=== PATIENT | male | born 1985 | race Caucasian/White ===

== ENCOUNTER 2021-12-12 18:33 | Emergency (ER) | payer OTHER, SELFPAY ==
--- NOTE | ~2021-12-12 | CT_ITS ---
EXAMINATION: CT abdomen pelvis w con DATE: 12/12/2021 22:18 INDICATION: Abdominal pain, nausea, vomiting, diarrhea, fever TECHNIQUE: Computed tomography (CT) of the abdomen and pelvis was performed with 100 CC Omnipaque 350 intravenous contrast. Automated exposure control and iterative reconstruction technique were employe d. Exam dose: 1178.89 mGy-cm total exam DLP. COMPARISON: None. FINDINGS: The lung bases are clear. Heart size is within normal range. No pericardial or pleural effu kady. Diffuse hepatic steatosis. No hepatic, splenic, pancreatic, adrenal or renal space-occupying mass les ion is evident. The gallbladder is present. No bile duct or pancreatic duct dilatation. Bilateral per sistent lobation. No urinary tract calculus or hydroureteronephrosis. Urinary bladder and prost ate gland are unremarkable. Normal caliber of the abdominal aorta. No intraperitoneal or retroperitoneal or pelvic mass lesion or adenopathy or ascites. Normal appendix. No bowel obstruction, bowel wall thickening, pneumatosis or intraperitoneal free air . Small fat-containing umbilical hernia. Included skeletal structures are unremarkable. IMPRESSION: Hepatic steatosis Normal appendix Reviewed, dictated and finalized at [facility]. Reviewed, dictated and finalized at [facility].
--- NOTE | ~2021-12-12 | XR_ITS ---
XR chest 1V portable DATE: 12/12/2021 20:55 INDICATION: Cough TECHNIQUE: Portable AP chest on 12/12/2021 at 2061 hours COMPARISON: 12/08/2005 2 view chest FINDINGS: No pulmonary infiltrate or consolidation, pulmonary vascular congestion or pleural effusion or pneumothorax. Heart size is within normal range. IMPRESSION: No active cardiopulmonary disease Reviewed, dictated and finalized at [facility].
[2021-12-12 19:07] VITALS: BP 140/91; PULSE 107; RESP 12; TEMP 39.2; O2SAT 98
[2021-12-12 20:39] VITALS: BP 161/93; PULSE 94; RESP 16; TEMP 37.8; O2SAT 97
--- NOTE | 2021-12-12 21:13 | ED.GENADULT ---
HPI - General Adult General Chief complaint: Abdominal Pain Stated complaint: N/V/D Time Seen by Provider: 12/12/21 20:34 History of Present Illness HPI narrative: Patient is a 36-year-old gentleman who presents the emergency department with chief complaint of nausea vomiting diarrhea. Patient reports that he started having vomiting and diarrhea over the weekend started to feel little better has had no diarrhea or vomiting today reports has had some discomfort throughout his abdomen also reports that he had a fullness feeling in his chest. Patient reports that he is spiked a temperature up to 105 at home. Patient states that he has not been vaccinated or had COVID previously. Patient does report that he is some discomfort in his lower quadrants of his abdomen. Related Data Allergies Allergy/AdvReac Type Severity Reaction Status Date / Time No Known Allergies Allergy Verified 12/12/21 20:45 Review of Systems Review of Systems: A 10 system review of systems was completed on the patient and is negative except for what is stated in the HPI. Nursing and ancillary documentation was reviewed. [facility] Family History Family History Father Diabetes mellitus Family history of coronary artery disease Social History Social History Smoking status: Former smoker Smoking end date: 09/17/13 Alcohol intake: current Exam Narrative: GENERAL: Well-appearing, well-nourished, and in no acute distress. HEAD: Normocephalic, atraumatic. EYES: PERRLA and EOMI. ENT: Nares clear, no rhinorrhea or epistaxis. Mucous membranes moist. NECK: Supple. CHEST: Clear to auscultation. No respiratory distress. HEART: Regular rate and rhythm. No murmur heard. Normal peripheral pulses. ABDOMEN: Soft, mild tenderness to palpation in lower quadrants of the abdomen, nondistended, normal active bowel sounds. EXTREMITIES: Normal range of motion. No edema. SKIN: Warm, dry, no rash. NEURO: No focal deficits. Alert and oriented x3. PSYCH: Normal mood and affect. Course Vital Signs Vital signs: Vital Signs Temperature 39.2 C H 12/12/21 19:07 Pulse Rate 107 H 12/12/21 19:07 Respiratory Rate 12 12/12/21 19:07 Blood Pressure 140/91 H 12/12/21 19:07 Pulse Oximetry 98 12/12/21 19:07 Temperature 37.4 C 12/12/21 22:35 Pulse Rate 81 12/12/21 22:35 Respiratory Rate 18 12/12/21 22:35 Blood Pressure 139/72 12/12/21 22:35 Pulse Oximetry 98 12/12/21 22:35 Medical Decision Making Vital Signs Vital Signs: Vital Signs Temperature 39.2 C H 12/12/21 19:07 Pulse Rate 107 H 12/12/21 19:07 Respiratory Rate 12 12/12/21 19:07 Blood Pressure 140/91 H 12/12/21 19:07 Pulse Oximetry 98 12/12/21 19:07 Temperature 37.4 C 12/12/21 22:35 Pulse Rate 81 12/12/21 22:35 Respiratory Rate 18 12/12/21 22:35 Blood Pressure 139/72 12/12/21 22:35 Pulse Oximetry 98 12/12/21 22:35 Lab Data Result diagrams: 12/12/21 21:25 12/12/21 21:25 Labs: Lab Results 12/12/21 12/12/21 12/12/21 Range/Units 21:25 21:25 21:25 WBC 7.4 (4.5-10.0) K/mm3 RBC 5.50 (4.6-6.20) M/mm3 Hgb 16.2 (14.0-18.0) g/dL Hct 47.3 (42.0-52.0) % MCV 86.0 (80-100) fl MCH 29.5 (26-34) pg MCHC 34.2 (32-36) g/dl RDW 13.4 (11.5-14.5) % Plt Count 168 (150-375) k/mm3 MPV 10.1 (7.4-10.4) fl Immature Gran % (Auto) 0.3 (0-0.5) % Neut % (Auto) 72.0 (45.5-73.1) % Lymph % (Auto) 13.3 L (18.3-44.2) % [place] % (Auto) 11.4 H (2.6-8.5) % Eos % (Auto) 2.3 (0-4.4) % Baso % (Auto) 0.7 (0.2-1.2) % Lymph # (Auto) 0.98 (0.9-3.2) K/mm3 [place] # (Auto) 0.8 H (0.1-0.6) K/mm3 Eos # (Auto) 0.2 (0-0.3) K/mm3 Baso # (Auto) 0.1 (0.0-0.1) K/mm3 Abs Immat Gran (auto) 0.02 (0.00-0.031) K/mm3 Absolute Neuts (auto) 5.
[2021-12-12 21:33] LABS: Basophils Absolute Auto 0.1 K/mm3 (0.0-0.1); Basophils Percent Auto 0.7 % (0.2-1.2); Eosinophils Absolute Auto 0.2 K/mm3 (0-0.3); Eosinophils Percent Auto 2.3 % (0-4.4); Hematocrit 47.3 % (42.0-52.0); Hemoglobin 16.2 g/dL (14.0-18.0); Immature Granulocyte Absolute 0.02 K/mm3 (0.00-0.031); Immature Granulocyte Percent A 0.3 % (0-0.5); Lymphocytes Absolute Auto 0.98 K/mm3 (0.9-3.2); Lymphocytes Percent Auto 13.3 % (18.3-44.2); Mean Corpuscular HGB Conc 34.2 g/dl (32-36); Mean Corpuscular Hemoglobin 29.5 pg (26-34); Mean Platelet Volume 10.1 fl (7.4-10.4); Monocytes Absolute Auto 0.8 K/mm3 (0.1-0.6); Monocytes Percent Auto 11.4 % (2.6-8.5); Neutrophils Absolute Auto 5.3 K/mm3 (1.3-6.7); Platelet Count Result 168 k/mm3 (150-375); Red Cell Distribution Width 13.4 % (11.5-14.5); White Blood Count 7.4 K/mm3 (4.5-10.0)
[2021-12-12] MEDS: SODIUM CHLORIDE 0.9% IV 1,000 ML 999 ML IV CONT (21:33)
[2021-12-12 21:36] LABS: Add Urine Microscopic? NO; Appearance Urine Clear (Clear); Bilirubin Urine Negative (Negative); Blood Urine Negative (Negative); Color Urine Yellow (Yellow); Glucose Urine UA Negative (Negative); Ketones Urine Negative (Negative); Leukocyte Esterase Ur Negative LEU/UL (Negative); Nitrate Urine Negative (Negative); Protein Urine Negative (Negative); Urobilinogen Urine Negative mg/dL (<2.0)
[2021-12-12 21:37] LABS: Specific Grav Ur 1.036 (1.001-1.035)
[2021-12-12 21:43] LABS: Lactic Acid Reflex 0.6 mmol/L (0.7-2.1)
[2021-12-12 21:44] LABS: Alanine Aminotransferase 70 U/L (4-50); Albumin Level 4.1 g/dL (3.5-5.1); Alkaline Phosphatase 64 U/L (38-126); Anion Gap 9 mmol/L (8-16); Aspartate Amino Transferase 42 U/L (17-59); Bilirubin,Total 0.5 mg/dL (0.2-1.3); Blood Urea Nitrogen 12 mg/dL (9-20); Calcium 8.2 mg/dL (8.4-10.2); Carbon Dioxide 23 mmol/L (22-30); Chloride 104 mmol/L (98-107); Estimated CRCL calculation 139 ml/min; Estimated Glomerular Filt Rate > 60; Glucose 98 mg/dL (65-110); Lipase 51 U/L (23-300); Potassium 3.8 mmol/L (3.4-5.0); Sodium 136 mmol/L (137-145)
[2021-12-12 22:19] LABS: SARS-CoV-2 RNA PCR Negative
[2021-12-12 22:35] VITALS: BP 139/72; PULSE 81; RESP 18; TEMP 37.4; O2SAT 98
[2021-12-13 00:06] VITALS: BP 118/80; PULSE 80; RESP 20; O2SAT 97
== END 2021-12-13 00:16 | disposition home or self-care (01) ==
PROVIDERS: Emergency Provider Emergency Medicine
DX: A08.4 Viral intestinal infection, unspecified (principal); Z20.822 Contact with and (suspected) exposure to COVID-19; Z87.891 Personal history of nicotine dependence
CPT/HCPCS: 36415; 71045; 74177; 80053; 81003; 83605; 83690; 85025; 96361; 96374; 99284; C9803; J0131; J7030; Q9967; U0003; U0005

== ENCOUNTER 2023-03-06 17:08 | Emergency (ER) | payer OTHER, SELFPAY ==
--- NOTE | ~2023-03-06 | XR_ITS ---
EXAM: XR knee LT min 4V DATE: 03/06/2023 17:45 HISTORY: fell on lt knee, pain anterior lt knee x 1 week . COMPARISON: None available. FINDINGS: Normal mineralization. No fracture or dislocation. No lytic or blastic lesion. Joint space s are maintained. No erosion or periosteal change. Soft tissues within normal limits. Small volume patricia int fluid. IMPRESSION: No acute osseous finding in the left knee. Reviewed, dictated and finalized at [facility].
--- NOTE | 2023-03-06 17:11 | ED.LOWEXIN ---
HPI - Extremity Injury (Lower) General Chief Complaint: Extremity Injury, Lower Stated Complaint: L KNEE INJURY Time Seen by Provider: 03/06/23 17:26 Source: patient, RN notes reviewed and old records reviewed Mode of arrival: ambulatory Limitations: no limitations History of Present Illness HPI Narrative: 37-year-old male presents to the [facility] with complaints of left knee pain. patient states last Sunday he fell onto his knees, continues to have pain to the knee. No bruising or swelling noted. Tenderness to the patella Related Data Home Medications Medication Instructions Recorded Confirmed No Home Medications 03/06/23 03/06/23 Allergies Allergy/AdvReac Type Severity Reaction Status Date / Time No Known Allergies Allergy Verified 03/06/23 17:20 Review of Systems Review of Systems: All systems reviewed & are unremarkable except as noted in HPI and below Constitutional: Constitutional: Reports no additional constitutional complaints Eyes: Eyes: Reports no additional eye complaints ENT: Reports system reviewed and no additional complaints, except as documented Cardiovascular: Cardiovascular: Reports no additional cardiovascular complaints, Denies chest pain and Denies dyspnea Respiratory: Respiratory: Reports no additional respiratory complaints, Denies chest congestion, Denies cough and Denies dyspnea Gastrointestinal: Gastrointestinal: Reports no additional gastrointestinal complaints, Denies abdominal pain, Denies nausea and Denies vomiting Musculoskeletal: Musculoskeletal: Reports as per HPI, Reports arthralgias and Denies joint swelling Integumentary/Breasts: Skin/Breast: Reports system reviewed and no additional complaints, except as docu Neurologic: Reports system reviewed and no additional complaints, except as documented Psychiatric: Psychiatric: Reports no additional psychiatric complaints Allergic/Immunologic: Allergic/Immunologic: Reports no additional allergic/immunologic complaints [facility] Family History Family History Father Diabetes mellitus Family history of coronary artery disease Social History Social History Smoking status: Former smoker Smoking end date: 09/17/13 Alcohol intake: current Comments At the time of my signature, I reviewed and agree with the nursing past medical, surgical, social, and family history. There is no relevant family history pertinent to the patient complaint. Exam Const: General: cooperative, healthy appearing, comfortable, no acute distress, well developed, alert and well nourished Nutritional Appearance: well nourished Orientation/consciousness: patient oriented x3 Limitations: no limitations HENMT: Head: normal to inspection Ears: hearing grossly normal bilaterally and external ears normal Face/Nose/Sinus: Normal external nose present, Normal nares present, Normal nasal mucous membranes and turbinates present and normal facial exam Face and sinus: normal facial exam Eyes: General: appearance normal, both eyes and all related structures Alignment and Position: alignment normal Periorbital: periorbital findings normal Pupils: Equal, round and reactive pupils present EOM: EOMs intact bilaterally Neck: Neck: normal visual inspection, full ROM, no lymphadenopathy and no meningeal signs Chest: Chest palpation & inspection: normal inspection of the chest Resp: Effort & Inspection: normal respiratory effort and able to speak in complete sentences Cardio: Rate: regular rate Rhythm: regular rhythm Back/Spine/Pelvis: Cervical Spine: cervical ROM normal Thoracic/Lumbar Spine: No thoracic spinal tenderness Skin: General skin exam: normal color and no rashes or lesions noted Lesions: no lesions Rashes: no rashes Wounds: no wounds Neuro: General: patient oriented x3, gait normal, tone normal, moves all extremities and no m
[2023-03-06 17:21] VITALS: BP 144/89; PULSE 88; RESP 16; TEMP 36.2
== END 2023-03-06 18:03 | disposition home or self-care (01) ==
PROVIDERS: Emergency Provider Nurse Practitioner
DX: S80.02XA Contusion of left knee, initial encounter (principal); W19.XXXA Unspecified fall, initial encounter; Z87.891 Personal history of nicotine dependence
CPT/HCPCS: 73564; 99213; G0463